=== PATIENT | male | born 1955 | race Caucasian/White ===

== ENCOUNTER 2018-02-11 08:32 | Day surgery (SDC) | payer OTHER ==
[~2018-02-11 08:32] MED LIST: Buffered Lidocaine 0.9% SYRIN* 5 ML/SYR SYRINGE INTRADERM ONE; Dexamethasone IV* 4 MG/ML 1 ML (4 MG) IV SLOW PU ONE; Dexamethasone IV* 4 MG/ML 1 ML (4 MG) ONE; Famotidine IV* 10 MG/ML 2 ML (20 mg) IV ONE; Famotidine IV* 10 MG/ML 2 ML (20 mg) ONE
[2018-02-11] MEDS ORDERED: ceFAZolin 2 GM PREMIX in ORs 2 GM/50 ML BAG IVPB ONE (08:40)
[2018-02-11] MEDS ORDERED: fentaNYL* 50 MCG/ML 2 ML VIAL (100 MCG VIAL) ONE (09:03)
[2018-02-11] MEDS ORDERED: Midazolam* 1 MG/ML 2 ML VIAL (2 MG) ONE (09:03)
[2018-02-11] MEDS ORDERED: Bupivacaine 0.25% SDV PF* 10 ML VIAL INJ ONE (10:02)
[2018-02-11] MEDS ORDERED: Lidocaine 0.5%* 50 ML SDV ONE (10:16)
[2018-02-11] MEDS ORDERED: fentaNYL* 50 MCG/ML 2 ML VIAL (100 MCG VIAL) IV PRN (11:05)
[2018-02-11] MEDS ORDERED: Naloxone* 0.4 MG/ML 1 ML VIAL IV PRN (11:05)
[2018-02-11] MEDS ORDERED: Ondansetron INJ* 2 MG/ML VIAL IV PRN (11:05)
[2018-02-11] MEDS ORDERED: Ketorolac INJ* 30 MG/ML 1 ML VIAL IV PRN (11:05)
[2018-02-11 12:12] VITALS: BP 121/72
--- NOTE | 2018-02-12 04:33 | OP ---
DATE OF OPERATION: 02/11/18 - [facility] DATE OF : 53 SURGEON: Trace Schrader MD ROAD EQUIPMENT OPERATOR: PANCHO Todd ANESTHESIOLOGIST: Dr. Wilson. ANESTHESIA: [place] block. 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 OPERATIVE PROCEDURE: Excision of large deep lipoma, left hand, measuring 5.5 cm wide x 3 cm long x 1.5 cm thick. INDICATIONS: Tom has a very large lipoma, it is giving him some neurological symptoms. I have got an MRI, which showed no signs concerning for liposarcoma. We had talked about risks and benefits. He had wanted to proceed with surgery. ESTIMATED BLOOD LOSS: 2 mL. COMPLICATIONS: None. FINDINGS: See above and below. DESCRIPTION OF PROCEDURE: Tom was seen in the preoperative holding area. We discussed risks and benefits. We again reviewed the risk of injury to any of the digital nerves. We came back to the operating room, a [place] block was performed. The arm was prepped and draped in the usual fashion. I made a Susannah type incision over the radial side of the palm. The dissection was carried down until we encountered the lipoma. A marginal excision was performed. There were 2 lobes to the lipoma in the radial digital artery. There was a common digital artery overlying the separation between the 2 lobes. The digital nerve was actually a bit bit deeper. I obtained a marginal excision freeing up that digital artery and retracting it radially and then came until I encountered the digital nerve and this was freed up. It was actually running deep to the mass. I then was able to free up the entire radial lobe of the mass, taking care to preserve the digital nerves and arteries. I was then able to place an Allis to the freed up portion of the lipoma and gently deliver the more ulnar lobe out from between the digital artery and the digital nerve. Once I had this completely freed up, I handed the lipoma off as a specimen. All the digital nerves were inspected, they were all intact and had not been injured. The hemostasis was obtained with the bipolar cautery. The wound was irrigated out. The skin was closed with 4-0 nylon suture. A soft dressing was applied and he was taken to the recovery room in stable condition. [id number] #: [id number] [place]
== END 2018-02-11 12:06 | disposition home or self-care (01) ==
LOC: OREAST 08:32
PROVIDERS: ATTEND Orthopaedic Surgery Hand Surgery
DX: D17.22 Benign lipomatous neoplasm of skin and subcutaneous tissue of left arm (principal)
CPT/HCPCS: 88304; J0690; J1100; J2250; J3010; J3490